=== PATIENT | female | born 1990 | race Caucasian/White ===

== ENCOUNTER 2017-12-14 14:49 | Inpatient (IN) | payer OTHER ==
[~2017-12-14] VITALS: Ht 152.4 cm; Wt 3.2 kg
[2017-12-14] MEDS ORDERED: PRENATABS RX T1 EACH (15:40)
[2017-12-18] MEDS ORDERED: ZOLOFT50 MG PO (13:11)
[2017-12-18] MEDS ORDERED: VISTARIL50 MG PO (13:12)
[2017-12-18] MEDS ORDERED: IMODIUM A-D2 MG PO (13:13)
== END 2017-12-21 20:11 | disposition home or self-care (01) | DRG 766 ==
LOC: O/R 12-18 12:38 → OB/GYN 12-18 12:38 → LDR 12-18 14:49 → OB/GYN 12-18 18:14
PROVIDERS: Obstetrics & Gynecology
PROC: 0UT70ZZ Resection of Bilateral Fallopian Tubes, Open Approach (ICD-10-PCS; 2017-12-18)
PROC: 4A1HXCZ Monitoring of Products of Conception, Cardiac Rate, External Approach (ICD-10-PCS; 2017-12-18)
PROC: 10D00Z1 Extraction of Products of Conception, Low, Open Approach (ICD-10-PCS; principal; 2017-12-18 15:00)
DX: O34.211 Maternal care for low transverse scar from previous cesarean delivery (principal); Z3A.38 38 weeks gestation of pregnancy; Z30.2 Encounter for sterilization; Z64.1 Problems related to multiparity; Z37.0 Single live birth